=== PATIENT | female | born 1945 | race Caucasian/White ===

== ENCOUNTER → 2024-08-24 | Outpatient (CLI) | payer MEDICARE, SELFPAY ==
[2024-08-24 12:06] LABS: Vitamin D 25 Hydroxy Total 29.6 ng/mL (7.3-40.2)
[2024-08-24 14:16] LABS: Creatinine MALB Rnd Ur 107 mg/dL (30-125); Microalbumin Creat Ratio 27 mg/gCrea (<30); Microalbumin, Random Urine 29 mg/L (0-300)
== END | disposition home or self-care (01) ==
LOC: COPL 10:45
PROVIDERS: PCP Internal Medicine; Referring Provider Internal Medicine Endocrinology, Diabetes & Metabolism; Visit Provider Internal Medicine Endocrinology, Diabetes & Metabolism
DX: E55.9 Vitamin D deficiency, unspecified (principal); E10.59 Type 1 diabetes mellitus with other circulatory complications
CPT/HCPCS: 36415; 82043; 82306; 82570; 84443

== ENCOUNTER → 2024-09-21 | Outpatient (CLI) | payer MEDICARE, SELFPAY ==
[2024-09-21 11:08] LABS: Collection Type, Urine Clean Catch
[2024-09-21 11:31] LABS: Basophils % (Auto) 1 % (0-2.5); Eosinophils # (Auto) 0.1 Thou/mm3 (0.0-0.5); Eosinophils % (Auto) 3 % (0-10); Hematocrit 30.6 % (36.0-46.0); Hemoglobin 10.6 g/dL (12.0-16.0); Immature Granulocytes % (Auto) 0 % (0-0); Immature Granulocytes Auto 0.01 Thou/mm3 (0.00-0.00); Lymphocytes # (Auto) 0.7 Thou/mm3 (1.0-4.8); Lymphocytes % (Auto) 25 % (10-50); Mean Corpuscular HGB Conc 34.6 g/dl (31.0-37.0); Mean Corpuscular Hemoglobin 32.5 pg (25.0-35.0); Mean Corpuscular Volume 94 fL (80-100); Monocytes # (Auto) 0.5 Thou/mm3 (0.0-0.8); Monocytes % (Auto) 17 % (0-12); Neutrophils # (Auto) 1.5 Thou/mm3 (1.8-7.7); Neutrophils % (Auto) 53 % (37-80); Nucleated Red Blood Cell % 0 /100 WBC (0); Platelet Count 208 Thou/mm3 (140-440); RDW Standard Deviation 46.1 fL (36.4-46.3); Red Blood Count 3.26 Miln/mm3 (4.00-5.20)
[2024-09-21 11:40] LABS: White Blood Count 2.8 Thou/mm3 (3.6-11.0)
[2024-09-21 11:56] LABS: Creatinine MALB Rnd Ur 86 mg/dL (30-125); Microalbumin Creat Ratio 27 mg/gCrea (<30); Microalbumin, Random Urine 23 mg/L (0-300)
[2024-09-21 12:11] LABS: Bacteria,Urine Rare; Bilirubin,Urine Negative (Negative); Blood,Urine Negative (Negative); Clarity,Urine Turbid (Clear/Hazy); Color,Urine Yellow (Lt Yel-Yel); Glucose, Urine Negative (Negative); Ketones,Urine Negative (Negative); Leukocyte Esterase,Urine Positive (Negative); Nitrite,Urine Negative (Negative); Protein,Urine Negative (Neg - Trace); RBC,Urine 2 /hpf (0-3); Specific Gravity,Urine 1.013 (1.001-1.035); Squamous Epithelial Cell,Urine 1 /hpf (0-5); Urobilinogen,Urine Negative mg/dL (0.0-1.0); WBC,Urine 23 /hpf (0-5)
[2024-09-21 12:19] LABS: Glucose Estimated Average 151 mg/dL (80-131); Hemoglobin A1C 6.9 % Hgb (4.8-6.0)
[2024-09-21 12:28] LABS: Alanine Aminotransferase 19 U/L (10-49); Albumin, Serum 3.7 gm/dL (3.4-4.8); Albumin/Globulin Ratio 1.9 (1.2-2.2); Alkaline Phosphatase 84 U/L (46-116); Anion Gap 8 (7-16); Aspartate Amino Transferase 26 U/L (0-34); BUN/Creatinine Ratio 20 Ratio (12-20); Bilirubin,Total 0.7 mg/dL (0.3-1.2); Blood Urea Nitrogen 18 mg/dL (9-23); Calcium 9.7 mg/dL (8.3-10.6); Calcium (Corrected) 9.9 mg/dL (8.5-10.1); Carbon Dioxide 29.9 mMol/L (20.0-31.0); Cardiac Risk Estimate 1.7 RATIO (3.7-5.6); Chloride 108 mMol/L (98-107); Cholesterol 104 mg/dL (132-200); Creatinine (Component) 0.9 mg/dL (0.6-1.3); Glucose 107 mg/dL (74-106); HDL Cholesterol 62 mg/dL (40-60); LDL Cholesterol,Calculated 33 mg/dL (0-130); Osmolality,Calculated 292 (275-295); Potassium 4.2 mMol/L (3.4-5.1); Sodium 146 mMol/L (136-145); Thyroid Stimulating Hormone 0.96 uIU/mL (0.55-4.78); Total Protein 5.7 gm/dL (5.7-8.2); Triglycerides 45 mg/dL (30-150); eGFR > 60 See Note
== END | disposition home or self-care (01) ==
PROVIDERS: PCP Internal Medicine; Referring Provider Internal Medicine; Visit Provider Internal Medicine
DX: E11.9 Type 2 diabetes mellitus without complications (principal); I10 Essential (primary) hypertension; E78.5 Hyperlipidemia, unspecified
CPT/HCPCS: 36415; 80053; 80061; 81001; 82043; 82570; 83036; 84439; 84443; 85025

== ENCOUNTER 2024-10-28 06:21 | Inpatient (IN) | payer MEDICARE, SELFPAY ==
[2024-10-28] VITALS (11 sets, daily range): BP systolic 100–144; BP diastolic 48–67; PULSE 82–103; RESP 16–88; TEMP 36.5–39.8; O2SAT 79–99; BMI 20.2
--- NOTE | 2024-10-28 06:38 | EKG_ITS ---
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
--- NOTE | 2024-10-28 06:38 | XR_ITS ---
Examination: AP chest single view A single AP portable semiupright chest single view Exam date and time: 22/03/2025 0648 hours Comparison March 10, 2018 INDICATION: Chest pain today. FINDINGS: Significant pneumonia in the lingular segment left upper lobe Normal heart size Right lung clear Left subclavian Port-A-Cath tip SVC IMPRESSION: Significant pneumonia in the lingular segment left upper lobe
[2024-10-28 06:54] LABS: Collection Type, Urine Clean Catch; Squamous Epithelial Cell,Urine 0 /hpf (0-5)
[2024-10-28 07:10] LABS: Basophils % (Auto) 0 % (0-2.5); Eosinophils % (Auto) 0 % (0-10); Hemoglobin 10.7 g/dL (12.0-16.0); Immature Granulocytes % (Auto) 0 % (0-0); Immature Granulocytes Auto 0.01 Thou/mm3 (0.00-0.00); Lactate (Lactic Acid) 1.4 mMol/L (0.4-2.0); Lymphocytes # (Auto) 0.3 Thou/mm3 (1.0-4.8); Lymphocytes % (Auto) 6 % (10-50); Mean Corpuscular HGB Conc 35.7 g/dl (31.0-37.0); Mean Corpuscular Volume 93 fL (80-100); Monocytes # (Auto) 0.1 Thou/mm3 (0.0-0.8); Monocytes % (Auto) 2 % (0-12); Neutrophils # (Auto) 4.5 Thou/mm3 (1.8-7.7); Neutrophils % (Auto) 91 % (37-80); Nucleated Red Blood Cell % 0 /100 WBC (0); Platelet Count 164 Thou/mm3 (140-440); RDW Standard Deviation 46.9 fL (36.4-46.3); Red Blood Count 3.24 Miln/mm3 (4.00-5.20); White Blood Count 4.9 Thou/mm3 (3.6-11.0)
[2024-10-28 07:30] LABS: B-Type Natriuretic Peptide 120 pg/mL (0-100)
[2024-10-28 07:38] LABS: Alanine Aminotransferase 18 U/L (10-49); Albumin/Globulin Ratio 1.7 (1.2-2.2); Alkaline Phosphatase 79 U/L (46-116); Anion Gap 10 (7-16); Aspartate Amino Transferase 28 U/L (0-34); BUN/Creatinine Ratio 19 Ratio (12-20); Bilirubin,Total 1.1 mg/dL (0.3-1.2); Blood Urea Nitrogen 17 mg/dL (9-23); Calcium 8.4 mg/dL (8.3-10.6); Calcium (Corrected) 9.2 mg/dL (8.5-10.1); Carbon Dioxide 24.8 mMol/L (20.0-31.0); Chloride 108 mMol/L (98-107); Creatinine (Component) 0.9 mg/dL (0.6-1.3); Estimated Creatinine Clearance 42.1 mL/min (>60); Globulin 1.8 gm/dL (2.3-3.5); Glucose 85 mg/dL (74-106); Lipase 15 U/L (12-53); Magnesium 1.5 mg/dL (1.6-2.6); Osmolality,Calculated 285 (275-295); Potassium 3.3 mMol/L (3.4-5.1); Procalcitonin 0.76 ng/ml (0.0-0.49); Sodium 143 mMol/L (136-145); Total Protein 4.8 gm/dL (5.7-8.2); Troponin I < 0.020 ng/mL (0.0-0.045); eGFR > 60 See Note
[2024-10-28 07:42] LABS: INR 1.1 (0.9-1.3); Partial Thromboplastin Time 20.8 Seconds (22.0-36.0); Prothrombin Time 12.4 Seconds (9.0-12.2)
[2024-10-28] MEDS: ACETAMINOPHEN 325 MG TABLET 650 MG PO (07:45)
[2024-10-28] MEDS: SODIUM CHLORIDE 0.9% 1000 ML 1,000 ML 999 ML IV (07:53)
--- NOTE | 2024-10-28 07:54 | PD.EDWEAK ---
ED Weakness RME/HPI General Chief complaint: Shortness of Breath/Dyspnea Stated complaint: SOB Time Seen by Provider: 10/28/24 06:38 Arrival date/time: 10/28/24 06:21 RME / HPI RME / HPI Narrative: 79 year old female with history of seizures, hypertension, diabetes, h/o gastric adenocarcinoma with resection, presents to the ED BIBA from home for complaint of weakness, fevers, body aches, cough, and feeling dizzy today. Patient additionally reports a mild cough. No other associated symptoms reported. Denies chest pain, abdominal pain, nausea, vomiting, diarrhea, or urinary symptoms. Per RN, patient is febrile at 103.6F and hypoxic 79% on room air. Related Data Home Medications ?Medication ?Instructions ?Recorded ?Confirmed atorvastatin 10 mg tablet (Lipitor) 5 mg PO DAILY ##0 04/03/13 05/12/22 clopidogrel 75 mg tablet (Plavix) 75 mg PO DAILY ##0 04/03/13 05/12/22 amlodipine 5 mg tablet 5 mg PO QDAY 05/12/22 05/12/22 amlodipine 5 mg tablet 5 mg PO QDAY 05/12/22 05/12/22 losartan 100 mg tablet 100 mg PO QDAY 05/12/22 05/12/22 Previous Rx's ?Medication ?Instructions ?Recorded insulin glargine 100 unit/mL 18 unit (0.18 mL) subcut QPM #10 mL 06/29/22 subcutaneous solution (Lantus U-100 Insulin) cephalexin 500 mg capsule 500 mg PO TID #21 caps 11/01/23 levetiracetam 500 mg tablet 1,000 mg (2 x 500 mg) PO BID #30 11/01/23 (Keppra) tabs Allergies Allergy/AdvReac Type Severity Reaction Status Date / Time No Known Allergies Allergy Verified 07/03/23 10:34 Review of Systems Review of Systems Narrative Review of Systems: GEN: +fever, no weight loss, +global weakness, +body aches EYES: No discharge, no pain HEENT: No ear pain, no congestion, no sore throat PULM: No shortness of breath, +cough CV: No chest pain, no palpitations GI: No nausea, no vomiting, no diarrhea, no pain, no constipation : No frequency, no urgency, no dysuria MUSC/SKEL: No joint pain, no back pain SKIN: No rash NEURO: +dizziness, +global weakness, no headache Past Medical History Past Medical History NEUROLOGIC: Positive Neurological Disorders, Cerebrovascular Accident and Head Trauma CARDIAC: Positive Cardiac Disorders, Hypercholesterolemia, Congestive Heart Failure and Hypertension RESPIRATORY: Positive Asthma GASTROINTESTINAL: Positive Gastrointestinal Disorders REPRODUCTIVE: Positive Endometriosis and Previous Pregnancies MUSCULOSKELETAL: Positive Musculoskeletal Disorders, Arthritis, Osteoporosis and Fractures ENT: Positive Cataracts, Glaucoma, Macular Degeneration and Head Trauma ENDOCRINE: Positive Endocrine Disorders and Diabetes Mellitus Type 1 OTHER HISTORY: Positive Hospitalization, Autoimmune Disease, Shingles, Chicken Pox, Measles, Mumps and Cancer Family History FAMILY HISTORY: Positive Family Cardiac Disorders, Family Cancer and Family Surgery Surgical History SURGICAL: Positive Eye Surgery, Abdominal Surgery, Gastrostomy, Hysterectomy and Tubal Ligation Social History SMOKING STATUS: Never smoker SUBSTANCE USE: does not use ED Exam Narrative Physical exam: GENERAL APPEARANCE: alert and oriented x 4, well-developed, well-nourished, patient coughing during exam HEENT: Normocephalic, atraumatic; pupils equal, round, reactive to light; EOMI; mucous membranes pink, moist; oropharynx clear NECK: Supple LUNGS: upper airway noise; no wheezes, no rales, no rhonchi HEART: Regular rate, regular rhythm; normal S1, S2; no murmurs ABDOMEN: non distended; normal BS; soft, no tenderness, no guarding, no rebound; no masses, no organomegaly, no hernia BACK: no CVA tenderness EXTREMITIES: atraumatic; no edema NEUROLOGIC: awake; alert and oriented x4; cranial nerves II-XII grossly intact; no focal sensory or motor deficits PSYCHIATRIC: appropriate mood and affect SKIN: warm, dry, normal color; no rashes Course Quality Measures Current suspected stage: sepsis Possible source: pulmonary Blood cultures ordered: completed in ED Antibiotic ordered: Yes Pertinent labs: 10/28/24 06:59 Lactic Acid 1.4 mMol/L (0.4-2.0) Procalcitonin 0.76 H ng/ml (0.0-0.49) sepsis Orders Category Date Time Status Bedside COVID-19 Antigen Test NOW Care 10/28/24 06:43 Active Bedside Influenza A&B Antigen Test NOW Care 10/28/24 06:43 Completed Ticket Sales Supervisor NOW Care 10/28/24 06:38 Active EKG (ED ONLY) *Do not use* NOW Care 10/28/24 06:38 Completed Insert IV NOW Care 10/28/24 07:51 Active EKG (ED Only) Stat Exams 10/28/24 06:38 Draft XR chest 1V portable Stat Exams 10/28/24 06:38 Completed B-Type Natriuretic Peptide Stat Lab 10/28/24 06:59 Completed Blood Culture (Lab) Stat Lab 10/28/24 06:59 Received CBC Stat Lab 10/28/24 06:59 Completed Comprehensive Metabolic Panel Stat Lab 10/28/24 06:59 Completed Lactate (Lactic Acid) Stat Lab 10/28/24 06:59 Completed Lipase Stat Lab 10/28/24 06:59 Completed Magnesium Stat Lab 10/28/24 06:59 Completed Partial Thromboplastin Time Stat Lab 10/28/24 06:59 Completed Procalcitonin Stat Lab 10/28/24 06:59 Completed Prothrombin Time with INR Stat Lab 10/28/24 06:59 Completed Troponin I Stat Lab 10/28/24 06:59 Completed Urinalysis Stat Lab 10/28/24 06:49 Completed Urine Culture Stat Lab 10/28/24 06:49 Received VBG [Venous Blood Gas] Stat Lab 10/28/24 08:16 Ordered Acetaminophen Tab [Tylenol Tab] Med 10/28/24 07:10 Discontinued 650 mg PO X1 ONE Azithromycin Inj [Zithromax Inj] 500 mg Med 10/28/24 07:27 Discontinued Sodium Chloride 0.9% 250 ml [Ns] 250 ml IV X1 Magnesium Sulfate 2 GM Ivpb [Magnesium Sulfate Ivpb] Med 10/28/24 07:41 Active 2 gm in 50 ml IV X1 POTASSIUM CHL 10 mEq IVPB [Kcl Ivpb] Med 10/28/24 07:41 Active 10 meq in 100 ml IV Q1H Sodium Chloride 0.9% 1000 ml [Ns] 1,000 ml Med 10/28/24 07:10 Discontinued IV 999 mls/hr cefTRIAXone [Rocephin] 1,000 mg Med 10/28/24 07:27 Discontinued SODIUM CHLORIDE 0.9% (Popper) [Ns 0.9% (P)] 50 ml IV X1 Vital Signs Vital signs: Vital Signs Temperature 103.6 F H 10/28/24 06:41 Pulse Rate 103 H 10/28/24 06:41 Respiratory Rate 25 H 10/28/24 06:41 Blood Pressure 144/54 H 10/28/24 06:41 Pulse Oximetry (%) 79 L 10/28/24 06:41 Oxygen Delivery Method Room Air 10/28/24 06:41 Pulse ox is 79% on room air which is hypoxic. Pulse ox is 97% on 2L nasal cannula which is normal. Weakness MDM Narrative MDM Narrative:: Samantha Myrick am scribing for and in the presence of Dr. Spencer. Patient data External records reviewed:: [facility] previous records (I reviewed ED visit on 11/01/2023 ) and EMS form Clinical information provided by:: patient and EMS Social determinants that could affect healthcare access:: none Patient has the following chronic illnesses:: seizures, hypertension, diabetes, h/o gastric adenocarcinoma with resection How is presenting disease/condition affected by chronic disease/condition?: exacerbated by Evaluation data The following diagnostics were reviewed and interpreted by me:: lab results, radiology exam(s) (CXR interpreted by me shows left lower lobe infiltrate ) and EKG tracing(s) (sinus tachycardia with first degree AV block, rate 100, no acute ischemic changes, no STEMI. ) Lab and/or radiology exams considered but not ordered:: None Interpretation Summary: Ordering Physician: Brianda Spencer MD Date of Service: 10/28/24 Procedure(s): XR chest 1V portable Accession Number(s): [id number] cc: William Morejon MD; Brianda Spencer MD~ Examination: AP chest single view A single AP portable semiupright chest single view Exam date and time: 22/03/2025 0648 hours Comparison March 10, 2018 INDICATION: Chest pain today. FINDINGS: Significant pneumonia in the lingular segment left upper lobe Normal heart size Right lung clear Left subclavian Port-A-Cath tip SVC IMPRESSION: Significant pneumonia in the lingular segment left upper lobe Dictated By: William Morejon MD Signed By: <Electronically signed by William Morejon MD in OV> 10/28/24 0748 Medications / Prescriptions Medications or Prescriptions considered but not ordered:: None Medication administrations:: Medication Administration History Magnesium Sulfate (Magnesium Sulfate Ivpb) 2 gm in 50 mls @ 25 mls/hr IV X1 ONE Stop: 10/28/24 09:40 Last Admin: 10/28/24 08:11 Dose: 25 mls/hr Documented By: GARRISON Potassium Chloride (Kcl Ivpb) 10 meq in 100 mls @ 100 mls/hr IV Q1H ENRIQUE Stop: 10/28/24 11:40 Last Admin: 10/28/24 08:13 Dose: 100 mls/hr Documented By: GARRISON Discontinued Medications Acetaminophen (Acetaminophen 325 Mg Tablet) 650 mg PO X1 ONE Stop: 10/28/24 07:11 Last Admin: 10/28/24 07:45 Dose: 650 mg Documented By: GARRISON Sodium Chloride (Ns) 1,000 mls @ 999 mls/hr IV .Q1H1M ONE Stop: 10/28/24 08:10 Last Admin: 10/28/24 07:53 Dose: 999 mls/hr Documented By: GARRISON Azithromycin 500 mg/ Sodium (Chloride) 250 mls @ 250 mls/hr IV X1 ONE Stop: 10/28/24 08:26 Ceftriaxone Sodium 1,000 mg/ (Sodium Chloride) 50 mls @ 100 mls/hr IV X1 ONE Stop: 10/28/24 07:56 Last Admin: 10/28/24 08:23 Dose: 100 mls/hr Documented By: GARRISON See above Consultations Consultation(s) initiated? (list below): Yes Consultation #1 (Physician, Specialty, Details): I spoke with hospitalist Dr. Wasserman regarding admission. Discussed patients PMHx, HPI, ED course, exam findings, labs, and radiology results. Will come evaluate the patient in the ED. Time: 08:05 Diagnosis Weakness Differential Diagnosis: acute myocardial infarction, anemia, hypoglycemia, hypothyroidism, sepsis and dehydration Most likely diagnosis given after review of the tests above:: Pneumonia Hypoxia Admission Indicated Admission indicated?: indicated Admission Request Was there a request for admission?: Yes Admission Attestation Admission request attestation: Discussed case with [] from Hospitalist service regarding admission. Discussed patients ED course, exam findings, labs, and radiology results. The Hospitalist [agrees,declines] to accept the patient for admission. Disposition Plan Disposition Plan: Admit Critical Care Time Critical Care Time Critical Care Time: Yes Total Critical Care Time (min.): 30 Attestation: The high probability of sudden, clinically significant deterioration in the patient's condition required the highest level of my preparedness to intervene urgently. The services I provided to this patient were to treat and/or prevent clinically significant deterioration. Services included the following: chart data review, reviewing nursing notes and/or old charts, documentation time, regulatory consultant collaboration regarding findings and treatment options, medication orders and management, direct patient care, vital sign assessments and ordering, interpreting and reviewing diagnostic studies and lab tests. Aggregate critical care time includes only time during which I was engaged in work directly related to the patient's care, as described above, whether at bedside or elsewhere in the Emergency Department. It did not include time spent performing other reported procedures or the services of residents, students, nurses or physician assistants. Discharge Plan Plan Patient Disposition: Admit Acute Care w/in Hospital Prescriptions/Referrals Prescriptions/Med Rec: No Action atorvastatin [Lipitor] 10 MG tablet 5 mg PO DAILY Qty: 0 clopidogrel [Plavix] 75 MG tablet 75 mg PO DAILY Qty: 0 amlodipine 5 mg tablet 5 mg PO QDAY Patient Comments: GENERIC FOR NORVASC. TAKE 1 TABLET BY MOUTH ONCE DAILY losartan 100 mg tablet 100 mg PO QDAY Patient Comments: TAKE 1 TABLET BY MOUTH EVERY DAY amlodipine 5 mg tablet 5 mg PO QDAY Patient Comments: GENERIC FOR NORVASC. TAKE 1 TABLET BY MOUTH ONCE DAILY insulin glargine [Lantus U-100 Insulin] 100 unit/mL solution 18 unit subcut QPM Qty: 10 1RF Rx Instructions: 18 U at bedtime in case of insulin pump failure levetiracetam [Keppra] 500 mg tablet 1,000 mg PO BID Qty: 30 1RF cephalexin 500 mg capsule 500 mg PO TID Qty: 21 0RF Problem List Clinical Impression: Pneumonia, Hypoxia Patient/Caregiver Discharge Instructions Print Language: Armenian Stand Alone Forms: Vicky Award Info., Patient Portal Info Letter
[2024-10-28] MEDS: Magnesium Sulfate 2 GM Ivpb 2 GM/50 ML BAG IV ×2 (08:11→10:04)
[2024-10-28] MEDS: POTASSIUM CHL 10 mEq IVPB 10 MEQ/100 ML BAG 100 MEQ IV ×4 (08:13→12:45)
[2024-10-28 08:15] LABS: Bacteria,Urine Rare; Bilirubin,Urine Negative (Negative); Blood,Urine Negative (Negative); Clarity,Urine Clear (Clear/Hazy); Color,Urine Lt-Yellow (Lt Yel-Yel); Glucose, Urine Negative (Negative); Ketones,Urine Negative (Negative); Leukocyte Esterase,Urine Negative (Negative); Nitrite,Urine Negative (Negative); PH,Urine 5.5 (5.0-7.0); Protein,Urine Negative (Neg - Trace); RBC,Urine < 1 /hpf (0-3); Specific Gravity,Urine 1.012 (1.001-1.035); Urobilinogen,Urine Negative mg/dL (0.0-1.0); WBC,Urine 4 /hpf (0-5)
[2024-10-28] MEDS: cefTRIAXone 1,000 MG in SODIUM CHLORIDE 0.9% (Popper) 50 ML 100 MG IV (08:23)
[2024-10-28 08:39] LABS: Base Excess, Venous 1 (-3-3); O2 Saturation, Venous 92 % (96-97); PCO2, Venous 35 mmHg (36-56); PO2, Venous 58 mmHg (15-58); pH, Venous 7.46 (7.33-7.66)
[2024-10-28] MEDS: AZITHROMYCIN INJ 500 MG in SODIUM CHLORIDE 0.9% 250 ML 250 ML 250 MG IV (09:03)
--- NOTE | 2024-10-28 09:44 | XR_ITS ---
Examination: CTA chest with intravenous contrast 2-D reconstructions 3-D reconstructions, vascular Date and time of exam: October 28, 2024 1034 hours INDICATIONS: Chest pain shortness of breath today CTDI: vol (mGy) 5.81 DLP: (mGycm) 184 Technique: Multiple axial sections of the thorax have been obtained. 3 mm slice thickness, from below the hemidiaphragms to above the apices of the lungs. Mediastinal and lung density settings have been obtained. 2-D sagittal and coronal reconstructions. 3-D angiographic renderings, 3-D volume renderings, 3D post processing, vascular maximum intensity projections obtained. Contrast administered is 100 cc Isovue-370. Low dose protocols were performed. One or more of the following dose reduction techniques were used; automated exposure control, adjustment of the mA and/or KV according to patient size, use of iterative reconstruction technique. Findings: No thoracic aortic aneurysm dilatation Fluid-filled esophagus No enlargement pulmonary artery segments No pulmonary artery filling defects Extensive pneumonia in the lingular segment mild pneumonia both lung bases Mild vascular congestion 6 mm pulmonary nodule left upper lobe IMPRESSION: Extensive pneumonia lingular segment left upper lobe Mild bibasilar pneumonia Negative for pulmonary artery emboli
--- NOTE | 2024-10-28 09:50 | PC.CC ---
Patient is a 79 year-old female who presents to the hospital for AHRF 2/2 Pneumonia. Gabbi TAPIA made [id number] contact with patient. ASW introduced self, role, and reason for visit. Patient appeared alert and oriented to self, location, and situation. Patient was pleasant and engaged in initial assessment. Patient confirmed information on demographics and reports to living with her Benja Lopez. Patient's medical decision maker is her Benja in the event she is unable to make her own medical decisions. At home the patient ambulates independently and completes her own ADLs. Patient does not use any DME. Patient receives primary care with [facility] and [facility] for prescription medications. Upon discharge the patient plans to return back home. environmental services director to follow up with any discharge needs.
[2024-10-28] MEDS: levETIRAcetam 250 MG TABLET 1000 MG PO ×2 (10:03→20:12)
[2024-10-28] MEDS: SODIUM CHLORIDE 0.9% 1000 ML 1,000 ML 80 ML IV (10:47)
[2024-10-28] MEDS: CLOPIDOGREL BISULFATE 75 MG TABLET PO (10:50)
--- NOTE | 2024-10-28 11:50 | PD.RESHP ---
Documentation for date of: 10/28/24 [facility] History of Present Illness History of present illness: Ms. Lopez is an 79-year-old female, very hard of hearing, with past medical history significant for type 1 diabetes (on insulin pump), arthritis, gastric cancer status post gastrectomy in 2018, hypertension, history of CVA without residual deficits and seizure disorder presented to the ED after having shortness of breath, fever and chills since this morning. Patient states that she has noticed a mild nonproductive cough for the past 3 days and last night she did some yard work including cleaning out the weeds and mowing the lawn which likely caused her to have severe bilateral shoulder pain. Patient denies any sick contacts or recent travels denies any chest pain palpitation or pressure, orthopnea or PND. Patient denies abdominal pain, constipation or diarrhea. Patient states that she has been having regular bowel movements and denies any dysuria or urgency. ED course: Vitals: Blood pressure 144/54, pulse 103, resp versus 25, temperature 103.6 answers of 79% patient is placed on 4 L oxygen via nasal cannula Labs: WBC 0.9, globin 10.7, hematocrit 30.0, potassium 3.3, 0.5, BNP 1 albumin 3.0, procalcitonin 0.76 VBG: pH 7.46, CO2 35, O2 58, O2 saturation 92% Urinalysis unremarkable Chest x-ray shows significant pneumonia in the lingular segment left upper lobe CTA shows extensive pneumonia lingular segment left upper lobe mild bibasilar pneumonia and negative for pulmonary artery emboli EKG sinus tachycardia with ST depressions PMH: Type 1 diabetes, arthritis, hypertension, CVA, history of gastric cancer s/p gastrectomy and 2018 PSH: Partial gastrectomy, knee surgery and meniscus surgery SH: Never smoked, denies marijuana and denies illicit drugs, drinks alcohol occasionally Home Meds: Keppra 1000 mg twice daily, amlodipine 5 mg daily, cyclobenzaprine 5 mg twice daily, hydralazine 25 mg 3 times daily and carvedilol 12.5 mg twice daily Review of Systems Review of Systems Systems Reviewed: All systems reviewed, normal except as documented Exam Vital Signs Temp Pulse Resp BP Pulse Ox O2 Del Method O2 Flow Rate 98.5 F 89 18 100/48 L 98 Nasal Cannula 2 10/28/24 10:54 10/28/24 10:54 10/28/24 10:54 10/28/24 10:54 10/28/24 10:54 10/28/24 10:54 10/28/24 10:54 Narrative Exam GENERAL: elderly pleasant female, very hard of hearing NEURO: no focal neurological deficits HEENT: Atraumatic, Normocephalic. mucous membranes moist. Eyes open, symmetrical, & clear, left side chest chemo port present HEART: Normal Heart Sounds LUNGS: Clear to auscultation with no wheezing or crackles. ABDOMEN: soft, non-distended, non-tender, bowel sounds heard, no guarding or rebound tenderness, insulin pump glucometer attached SKIN: No Rash or ecchymoses EXTREMITIES: No edema, tenderness, able to move all 4 extremities, pedal pulses palpated Results: Labs 10/29/24 04:49 10/29/24 04:49 Labs: Short CBC 10/28/24 Range/Units 06:59 WBC 4.9 (3.6-11.0) Thou/mm3 Hgb 10.7 L (12.0-16.0) g/dL Hct 30.0 L (36.0-46.0) % Plt Count 164 D (140-440) Thou/mm3 BMP 10/28/24 06:59 Sodium 143 Potassium 3.3 L Chloride 108 H Carbon Dioxide 24.8 BUN 17 Creatinine 0.9 Glucose 85 Calcium 8.4 Cardiac Enzymes 10/28/24 Range/Units 06:59 Troponin I < 0.020 (0.0-0.045) ng/mL Liver Function 10/28/24 Range/Units 06:59 Total Bilirubin 1.1 (0.3-1.2) mg/dL AST 28 (0-34) U/L ALT 18 (10-49) U/L Alkaline Phosphatase 79 (46-116) U/L Albumin 3.0 L (3.4-4.8) gm/dL Urine 10/28/24 Range/Units 06:49 Urine Color Lt-Yellow (Lt Yel-Yel) Urine Clarity Clear (Clear/Hazy) Urine pH 5.5 (5.0-7.0) Ur Specific Eastern 1.012 (1.001-1.035) Urine Protein Negative (Neg - Trace) Urine Glucose (UA) Negative (Negative) ABG Interpretation ABG results: 10/28/24 08:30 VBG pH 7.46 VBG pCO2 35 L VBG pO2 58 VBG Base Excess 1 Quality Measures Quality Measures sepsis Current suspected stage: sepsis (concern, not yet ruled out ) Possible source: pulmonary Blood cultures ordered: completed in ED Antibiotic ordered: Yes Advance care planning discussed with:: patient Medications Home Medications and Allergies Home Medications ?Medication ?Instructions ?Recorded ?Confirmed ?Type atorvastatin 10 mg tablet (Lipitor) 5 mg PO DAILY ##0 04/03/13 10/28/24 History clopidogrel 75 mg tablet (Plavix) 75 mg PO DAILY ##0 04/03/13 10/28/24 History amlodipine 5 mg tablet 5 mg PO QDAY 05/12/22 10/28/24 History losartan 100 mg tablet 100 mg PO QDAY 05/12/22 10/28/24 History carvedilol 12.5 mg tablet 12.5 mg PO BID 10/28/24 10/28/24 History cyclobenzaprine 5 mg tablet 5 mg PO BID 10/28/24 10/28/24 History hydralazine 25 mg tablet 25 mg PO QID 10/28/24 10/28/24 History Allergies Allergy/AdvReac Type Severity Reaction Status Date / Time No Known Allergies Allergy Verified 07/03/23 10:34 Visit Medications Acetaminophen (Acetaminophen 325 Mg Tablet) 650 mg PO Q6H PRN PRN Reason: Fever >100.3 Stop: 11/27/24 08:57 Clopidogrel Bisulfate (Clopidogrel Bisulfate 75 Mg Tablet) 75 mg PO QDAY [facility] Stop: 11/27/24 10:29 Last Admin: 10/28/24 10:50 Dose: 75 mg Dextrose (Dextrose 50%-Water Inj 50 Ml Syringe) 25 ml IV Q15MIN PRN PRN Reason: BG 50-70 responsive npo pt Stop: 11/27/24 09:03 Dextrose (Dextrose 50%-Water Inj 50 Ml Syringe) 50 ml IV Q15MIN PRN PRN Reason: BG <50 OR BG <70 & pt unresponsive Stop: 11/27/24 09:03 Enoxaparin Sodium (Enoxaparin Sod Inj 40 Mg/0.4 Ml Syringe) 40 mg SC QDAY [facility] Stop: 11/11/24 08:59 Last Admin: 10/28/24 09:10 Dose: Not Given Glucagon (Glucagon Inj 1 Mg Vial) 1 mg IM Q15MIN PRN PRN Reason: BG <70, and no IV access Azithromycin 250 mg/ Sodium (Chloride) 250 mls @ 250 mls/hr IV QDAY [facility] Stop: 11/05/24 09:04 Ceftriaxone Sodium/Dextrose (Rocephin/D5w 1gm Iv Premix) 1 gm in 50 mls @ 100 mls/hr IV QDAY [facility] Stop: 11/05/24 08:59 Sodium Chloride (Ns) 1,000 mls @ 80 mls/hr IV .[id number] ONE Stop: 10/28/24 22:53 Last Admin: 10/28/24 10:47 Dose: 80 mls/hr Insulin Human Lispro (Insulin Lispro (Admelog) 1 Unit/0.01 Ml Unit) 0 unit SC AC ENRIQUE; Protocol Stop: 11/27/24 11:29 Levetiracetam (Levetiracetam 250 Mg Tablet) 1,000 mg PO BID ENRIQUE Stop: 11/27/24 09:59 Last Admin: 10/28/24 10:03 Dose: 1,000 mg Discontinued Medications Acetaminophen (Acetaminophen 325 Mg Tablet) 650 mg PO X1 ONE Stop: 10/28/24 07:11 Last Admin: 10/28/24 07:45 Dose: 650 mg Sodium Chloride (Ns) 1,000 mls @ 999 mls/hr IV .[id number] ONE Stop: 10/28/24 08:10 Last Infusion: 10/28/24 08:53 Dose: Infused Azithromycin 500 mg/ Sodium (Chloride) 250 mls @ 250 mls/hr IV X1 ONE Stop: 10/28/24 08:26 Last Infusion: 10/28/24 10:06 Dose: Infused Ceftriaxone Sodium 1,000 mg/ (Sodium Chloride) 50 mls @ 100 mls/hr IV X1 ONE Stop: 10/28/24 07:56 Last Infusion: 10/28/24 09:02 Dose: Infused Magnesium Sulfate (Magnesium Sulfate Ivpb) 2 gm in 50 mls @ 25 mls/hr IV X1 ONE Stop: 10/28/24 09:40 Last Infusion: 10/28/24 10:35 Dose: Infused Potassium Chloride (Kcl Ivpb) 10 meq in 100 mls @ 100 mls/hr IV Q1H ENRIQUE Stop: 10/28/24 11:40 Last Admin: 10/28/24 10:47 Dose: 100 mls/hr Magnesium Sulfate (Magnesium Sulfate Ivpb) 2 gm in 50 mls @ 25 mls/hr IV X1 ONE Stop: 10/28/24 11:45 Last Admin: 10/28/24 10:04 Dose: 25 mls/hr Assessment & Plan Plan Ms. Lopez is an 79-year-old female, very hard of hearing, with past medical history significant for type 1 diabetes (on insulin pump), arthritis, gastric cancer status post gastrectomy in 2017, hypertension, history of CVA without residual deficits and seizure disorder presented to the ED after having shortness of breath, fever and chills since this morning. # Possible sepsis #Acute Hypoxic respiratory Failure 09/04 #Community acquired pneumonia #Concern for PE - ruled out -Patient states that she has noticed a mild nonproductive cough for the past 3 days -Although sepsis alert is called in the ED due to SIRS 10/04: tachycardia, tachyapnea and fever of 103.6, there is no evidence of end organ damage, Pt is saturating 98% on 2L O2, BC are pending -Due to pts gastric cancer history and hx of CVA, WELLS criteria for PE is calculated to be 1.5 Low risk group: 1.3% chance of PE in an ED population -Chest x-ray shows significant pneumonia in the lingular segment left upper lobe -CTA shows extensive pneumonia lingular segment left upper lobe mild bibasilar pneumonia and negative for pulmonary artery emboli -EKG sinus tachycardia with ST depressions -Procal 0.76 Plan: -Supplemental oxygen as needed -DuoNebs as needed -Urine and blood cultures pending -Azithromycin and ceftriaxone started 10/28- #Hypokalemia #Hypomagnesemia -On admission potassium is 3.3 and magnesium is 1.5 -40 mEq of potassium and 4 g of magnesium is repleted #Type 1 diabetes -Patient is on insulin pump which she turned off this morning -Started patient on insulin sliding scale with hypoglycemia protocol in place #Primary hypertension -Patient's home medications include hydralazine 25 mg 3 times daily, carvedilol 12.5 mg twice daily and amlodipine 5 mg daily -Blood pressure is within normal limits, will hold antihypertensive therapy for now #History of seizure disorder -Patient is diagnosed with seizure disorder in 2021 -Resumed home Keppra 1000 mg twice daily #History of gastric cancer status post-gastrectomy 2018 #History of CVA without residual deficits #History of arthritis -Started the patient on Plavix 75 mg daily -Resumed home cyclobenzaprine 5 mg at BID PRN Health Maintenance Disposition: Telemetry for AHRF 2/2 pneumonia requiring oxygen and IV antibitoics DVT Prophylaxis: enoxaparin 40mg Qdaily GI Prophylaxis: not needed Diet: carbohydrate consistent low Lines: Peripheral lines Code status: Full Assessment and plan discussed with my senior resident & attending physician Dr. Dr. Luque (PGY-1)- Internal medicine resident Attending Provider Attestation/Addendum I reviewed labs, imaging, EKG, home medications and prior available records. Face to face evaluation was performed by me. I have personally examined the patient and discussed assessment and plan with the IM team. I reviewed the resident note and agree with the plan with exceptions as below. Acute hypoxic respiratory failure Generalized weakness Acute febrile illness Sepsis secondary to pneumonia, left upper lobe Hypokalemia Insulin-dependent diabetes mellitus, on insulin pump History of gastric cancer Started ceftriaxone/azithromycin CTA showed no PE but significant left-sided pneumonia Follow-up cultures IV fluids Replete potassium as needed and monitor BMP Insulin pump was turned off. Started sliding scale insulin. Monitor fingersticks Outpatient follow-up with oncology
[2024-10-28 12:01] LABS: Cocci Serology, IgM Negative (Negative)
[2024-10-28] MEDS: INSULIN LISPRO (AdmeLOG) 1 UNIT/0.01 ML UNIT SC ×2 (13:23→17:41)
[2024-10-28 19:04] LABS: Albumin, Serum 2.9 gm/dL (3.4-4.8); Anion Gap 9 (7-16); BUN/Creatinine Ratio 20 Ratio (12-20); Blood Urea Nitrogen 20 mg/dL (9-23); Calcium 8.5 mg/dL (8.3-10.6); Calcium (Corrected) 9.4 mg/dL (8.5-10.1); Carbon Dioxide 22.8 mMol/L (20.0-31.0); Chloride 109 mMol/L (98-107); Estimated Creatinine Clearance 38.7 mL/min (>60); Glucose 207 mg/dL (74-106); Osmolality,Calculated 289 (275-295); Phosphorous 3.7 mg/dL (2.4-5.1); Potassium 4.7 mMol/L (3.4-5.1); Sodium 141 mMol/L (136-145); eGFR 57 See Note
[2024-10-29] VITALS (8 sets, daily range): BP systolic 106–120; BP diastolic 45–61; PULSE 80–90; RESP 10–16; TEMP 36.4–37; O2SAT 94–98; BMI 20.5
[2024-10-29 05:51] LABS: Basophils # (Auto) 0.1 Thou/mm3 (0.0-0.2); Basophils % (Auto) 0 % (0-2.5); Eosinophils % (Auto) 0 % (0-10); Hematocrit 29.9 % (36.0-46.0); Hemoglobin 10.1 g/dL (12.0-16.0); Immature Granulocytes % (Auto) 3 % (0-0); Immature Granulocytes Auto 0.92 Thou/mm3 (0.00-0.00); Lymphocytes # (Auto) 1.3 Thou/mm3 (1.0-4.8); Lymphocytes % (Auto) 4 % (10-50); Mean Corpuscular HGB Conc 33.8 g/dl (31.0-37.0); Mean Corpuscular Hemoglobin 33.2 pg (25.0-35.0); Mean Corpuscular Volume 98 fL (80-100); Monocytes # (Auto) 2.1 Thou/mm3 (0.0-0.8); Monocytes % (Auto) 7 % (0-12); Neutrophils # (Auto) 25.4 Thou/mm3 (1.8-7.7); Neutrophils % (Auto) 85 % (37-80); Nucleated Red Blood Cell % 0 /100 WBC (0); Platelet Count 202 Thou/mm3 (140-440); RDW Standard Deviation 51.5 fL (36.4-46.3); Red Blood Count 3.04 Miln/mm3 (4.00-5.20); White Blood Count 29.9 Thou/mm3 (3.6-11.0)
[2024-10-29 06:15] LABS: Alanine Aminotransferase 14 U/L (10-49); Albumin, Serum 2.8 gm/dL (3.4-4.8); Albumin/Globulin Ratio 1.6 (1.2-2.2); Alkaline Phosphatase 78 U/L (46-116); Anion Gap 12 (7-16); Aspartate Amino Transferase 22 U/L (0-34); BUN/Creatinine Ratio 21 Ratio (12-20); Bilirubin,Total 0.7 mg/dL (0.3-1.2); Blood Urea Nitrogen 25 mg/dL (9-23); Carbon Dioxide 18.5 mMol/L (20.0-31.0); Chloride 108 mMol/L (98-107); Creatinine (Component) 1.2 mg/dL (0.6-1.3); Estimated Creatinine Clearance 32.1 mL/min (>60); Globulin 1.8 gm/dL (2.3-3.5); Glucose 322 mg/dL (74-106); Magnesium 2.5 mg/dL (1.6-2.6); Osmolality,Calculated 292 (275-295); Phosphorous 4.1 mg/dL (2.4-5.1); Potassium 4.6 mMol/L (3.4-5.1); Sodium 138 mMol/L (136-145); Total Protein 4.6 gm/dL (5.7-8.2); eGFR 46 See Note
[2024-10-29] MEDS: INSULIN LISPRO (AdmeLOG) 1 UNIT/0.01 ML UNIT SC ×3 (07:35→16:23)
[2024-10-29] MEDS: cefTRIAXone/D5w 1gm IV premix 1 GM/50 ML BAG IV (09:08)
[2024-10-29] MEDS: ENOXAPARIN SOD INJ 40 MG/0.4 ML SYRINGE SC (09:09)
[2024-10-29] MEDS: levETIRAcetam 250 MG TABLET 1000 MG PO ×2 (09:09→20:20)
[2024-10-29] MEDS: INSULIN GLARGINE (Lantus) 5 UNIT/0.05 ML (PER 5 UNITS) 8 UNIT SC (09:09)
[2024-10-29] MEDS: CLOPIDOGREL BISULFATE 75 MG TABLET PO (09:09)
[2024-10-29] MEDS: AZITHROMYCIN INJ 250 MG in SODIUM CHLORIDE 0.9% 250 ML 250 ML IV ×2 (09:28→14:31)
[2024-10-29] MEDS: INSULIN LISPRO (AdmeLOG) 1 UNIT/0.01 ML UNIT 3 UNIT SC ×3 (11:06→20:17)
--- NOTE | 2024-10-29 12:15 | ESPR_ITS ---
Documentation for date of: 10/29/24 Subjective Subjective Interval history: No acute overnight events reported patient seen and examined at bedside this morning. Patient's vitals are stable, patient is saturating above 95% on room air. Patient denies any cough shortness of breath and has remained afebrile overnight. Patient denies any symptoms of UTI including dysuria or urgency patient also denies any diarrhea states that she had a bowel movement yesterday which was normal. Labs are significant for WBC 29.9 hemoglobin is stable at 10.1 hematocrit 29.9, blood cultures at 24 hours had no growth and urine cultures grew GNR reviewing patient's previous hospital admission urine cultures were positive for Klebsiella therefore this may likely be colonization. Will continue to monitor patient's symptoms and labs. Currently patient is on ceftriaxone and will increase azithromycin to 500 with the last dose tomorrow. Exam Vital Signs Temp Pulse Resp BP Pulse Ox O2 Del Method O2 Flow Rate 98.1 F 88 16 111/61 95 Room Air 1 10/29/24 08:00 10/29/24 08:00 10/29/24 08:00 10/29/24 08:00 10/29/24 08:00 10/29/24 08:00 10/29/24 07:52 Narrative Exam GENERAL: elderly pleasant female, very hard of hearing, saturating on room air NEURO: no focal neurological deficits HEENT: Atraumatic, Normocephalic. mucous membranes moist. Eyes open, symmetrical, & clear, left side chest chemo port present HEART: Normal Heart Sounds LUNGS: Clear to auscultation with no wheezing or crackles. ABDOMEN: soft, non-distended, non-tender, bowel sounds heard, no guarding or rebound tenderness, insulin pump glucometer attached SKIN: No Rash or ecchymoses EXTREMITIES: No edema, tenderness, able to move all 4 extremities, pedal pulses palpated Objective Labs 10/30/24 05:17 10/30/24 05:17 Labs: Laboratory Results - last 24 hr 10/28/24 10/29/24 18:37 04:49 WBC 29.9 H D RBC 3.04 L Hgb 10.1 L Hct 29.9 L MCV 98 MCH 33.2 MCHC 33.8 RDW Std Deviation 51.5 H Plt Count 202 D Neut % (Auto) 85 H Lymph % (Auto) 4 L Wharton % (Auto) 7 Eos % (Auto) 0 Baso % (Auto) 0 Neut # (Auto) 25.4 H Lymph # (Auto) 1.3 Wharton # (Auto) 2.1 H Eos # (Auto) 0.0 Baso # (Auto) 0.1 Immature Gran # (Auto) 0.92 H Absolute Nucleated RBC 0.00 Immature Gran % 3 H Nucleated RBC % 0 Sodium 141 138 Potassium 4.7 D 4.6 Chloride 109 H 108 H Carbon Dioxide 22.8 18.5 L Anion Gap 9 12 BUN 20 25 H Creatinine 1.0 1.2 Estim Creat Clear Calc 38.7 L 32.1 L eGFR 57 L 46 L BUN/Creatinine Ratio 20 21 H Glucose 207 H D 322 H D Calculated Osmolality 289 292 Calcium 8.5 8.0 L Corrected Calcium 9.4 9.0 Phosphorus 3.7 4.1 Magnesium 2.5 Total Bilirubin 0.7 AST 22 ALT 14 Alkaline Phosphatase 78 Total Protein 4.6 L Albumin 2.9 L 2.8 L Globulin 1.8 L Albumin/Globulin Ratio 1.6 ABG Interpretation ABG results: 10/28/24 08:30 VBG pH 7.46 VBG pCO2 35 L VBG pO2 58 VBG Base Excess 1 Quality Measures Quality Measures sepsis Current suspected stage: ruled out Possible source: pulmonary Blood cultures ordered: completed in ED Antibiotic ordered: Yes Advance care planning discussed with:: patient Assessment & Plan Assessment Current Active Medications: Generic Name Dose Route Start Last Admin Trade Name Freq PRN Reason Stop Dose Admin Acetaminophen 650 mg 10/28/24 16:41 Acetaminophen 325 Mg Tablet PO 11/27/24 08:57 Q6H PRN Fever >100.3 and pain Albuterol/Ipratropium 3 ml 10/28/24 14:41 Albuterol/Ipratropium (Duoneb) Rt Kiley 3 Ml Nebu INH 11/27/24 14:59 Q4HRRT PRN wheezing Clopidogrel Bisulfate 75 mg 10/28/24 10:30 10/29/24 09:09 Clopidogrel Bisulfate 75 Mg Tablet PO 11/27/24 10:29 75 mg QDAY ENRIQUE Administration Cyclobenzaprine HCl 5 mg 10/28/24 16:34 Cyclobenzaprine 5 Mg Tablet PO 11/27/24 20:59 BID PRN muscle spasm Protocol Dextrose 25 ml 10/28/24 09:04 Dextrose 50%-Water Inj 50 Ml Syringe IV 11/27/24 09:03 Q15MIN PRN BG 50-70 responsive npo pt Dextrose 50 ml 10/28/24 09:04 Dextrose 50%-Water Inj 50 Ml Syringe IV 11/27/24 09:03 Q15MIN PRN BG <50 OR BG <70 & pt unresponsive Enoxaparin Sodium 40 mg 10/28/24 09:00 10/29/24 09:09 Enoxaparin Sod Inj 40 Mg/0.4 Ml Syringe SC 11/11/24 08:59 40 mg QDAY ENRIQUE Administration Glucagon 1 mg 10/28/24 09:04 Glucagon Inj 1 Mg Vial IM Q15MIN PRN BG <70, and no IV access Ceftriaxone Sodium/Dextrose 1 gm in 50 mls @ 100 mls/hr 10/29/24 09:00 10/29/24 09:08 Rocephin/D5w 1gm Iv Premix IV 11/05/24 08:59 100 mls/hr QDAY ENRIQUE Administration Azithromycin 250 mg/ Sodium 250 mls @ 250 mls/hr 10/29/24 12:14 Chloride IV 10/29/24 13:13 X1 ONE Azithromycin 500 mg/ Sodium 250 mls @ 250 mls/hr 10/30/24 09:00 Chloride IV 10/31/24 08:59 QDAY ENRIQUE Insulin Glargine 8 unit 10/29/24 09:00 10/29/24 09:09 Insulin Glargine (Lantus) 5 Unit/0.05 Ml (Per 5 Units) SC 11/28/24 08:59 8 unit QDAY NERIQUE Administration Insulin Human Lispro 0 unit 10/29/24 11:30 10/29/24 11:07 Insulin Lispro (Admelog) 1 Unit/0.01 Ml Unit SC 11/27/24 11:29 5 unit AC ENRIQUE Administration Protocol Insulin Human Lispro 3 unit 10/29/24 11:30 10/29/24 11:06 Insulin Lispro (Admelog) 1 Unit/0.01 Ml Unit SC 11/28/24 11:29 3 unit ACHS ENRIQUE Administration Levetiracetam 1,000 mg 10/28/24 10:00 10/29/24 09:09 Levetiracetam 250 Mg Tablet PO 11/27/24 09:59 1,000 mg BID ENRIQUE Administration Sennosides 8.8 mg 10/28/24 16:39 Sennosides Syrup 8.8 Mg/5 Ml Udc PO 11/27/24 16:38 QDAY PRN CONSTIPATION Protocol Plan Ms. Lopez is an 79-year-old female, very hard of hearing, with past medical history significant for type 1 diabetes (on insulin pump), arthritis, gastric cancer status post gastrectomy in 2018, hypertension, history of CVA without residual deficits and seizure disorder presented to the ED after having shortness of breath, fever and chills since this morning. # Possible sepsis - ruled out #Acute Hypoxic respiratory Failure 09/04 #Community acquired pneumonia #Concern for PE - ruled out -Patient states that she has noticed a mild nonproductive cough for the past 3 days -Although sepsis alert is called in the ED due to SIRS 10/04: tachycardia, tachyapnea and fever of 103.6, there is no evidence of end organ damage, Pt is saturating 98% on 2L O2, BC are pending -Due to pts gastric cancer history and hx of CVA, WELLS criteria for PE is calculated to be 1.5 Low risk group: 1.3% chance of PE in an ED population -Chest x-ray shows significant pneumonia in the lingular segment left upper lobe -CTA shows extensive pneumonia lingular segment left upper lobe mild bibasilar pneumonia and negative for pulmonary artery emboli -EKG sinus tachycardia with ST depressions -Procal 0.76 -Cocci IgM negative Plan: -Supplemental oxygen as needed -DuoNebs as needed -Urine cultures grew GNR likely colonization as pt denies any symptoms of UTI including dysuria and urgency. Urinalysis was clean -Blood cultures no growth at 24hrs -Azithromycin and ceftriaxone started 10/28- #Hypokalemia-improved #Hypomagnesemia -resolved -On admission potassium is 3.3 and magnesium is 1.5 -40 mEq of potassium and 4 g of magnesium is repleted #Type 1 diabetes -A1c 6.9 on 09/21/24 -Patient is on insulin pump which she turned off this morning -Lispro 3 units ACHS and Lantus 8 units -Plus insulin sliding scale with hypoglycemia protocol in place #Primary hypertension -Patient's home medications include hydralazine 25 mg 3 times daily, carvedilol 12.5 mg twice daily and amlodipine 5 mg daily -Blood pressure is within normal limits, will hold antihypertensive therapy for now #History of seizure disorder -Patient is diagnosed with seizure disorder in 2021 -Resumed home Keppra 1000 mg twice daily #History of gastric cancer status post-gastrectomy 2017 #History of CVA without residual deficits #History of arthritis -Started the patient on Plavix 75 mg daily -Resumed home cyclobenzaprine 5 mg at BID PRN Health Maintenance Disposition: Telemetry for AHRF 2/2 pneumonia requiring oxygen and IV antibiotics DVT Prophylaxis: enoxaparin 40mg Qdaily GI Prophylaxis: not needed Diet: carbohydrate consistent low Lines: Peripheral lines Code status: Full Assessment and plan discussed with my attending physician Dr. Lisy Luque (PGY-1)- Internal medicine resident Attending Provider Attestation/Addendum I reviewed labs, imaging, EKG, home medications and prior available records. Face to face evaluation was performed by me. I have personally examined the patient and discussed assessment and plan with the IM team. I reviewed the resident note and agree with the plan with exceptions as below. Acute hypoxic respiratory failure, improved Generalized weakness Acute febrile illness Sepsis secondary to pneumonia, left upper lobe Hypokalemia Insulin-dependent diabetes mellitus, on insulin pump, uncontrolled, new complication History of gastric cancer Started ceftriaxone/azithromycin CTA showed no PE but significant left-sided pneumonia WBC increased. Could be in the setting of hyperglycemia. Management as below Cocci IgM is negative. Follow-up cultures: Blood cultures negative to date. Urine culture showed gram-negative rods Replete potassium as needed and monitor BMP Insulin pump was turned off. Started insulin Lantus. Increased insulin Lantus. Started sliding scale insulin. Monitor fingersticks Outpatient follow-up with oncology
[2024-10-30] VITALS: BP 118/53; PULSE 81; PULSE 82; RESP 17; TEMP 37.2; O2SAT 96
[2024-10-30 04:00] VITALS: BP 133/53; PULSE 74; PULSE 81; RESP 19; TEMP 36.3; O2SAT 99
[2024-10-30 06:00] VITALS: BMI 22.4
[2024-10-30 06:03] LABS: Basophils # (Auto) 0.1 Thou/mm3 (0.0-0.2); Basophils % (Auto) 0 % (0-2.5); Eosinophils # (Auto) 0.1 Thou/mm3 (0.0-0.5); Eosinophils % (Auto) 1 % (0-10); Hematocrit 28.3 % (36.0-46.0); Hemoglobin 9.6 g/dL (12.0-16.0); Immature Granulocytes % (Auto) 1 % (0-0); Immature Granulocytes Auto 0.16 Thou/mm3 (0.00-0.00); Lymphocytes # (Auto) 1.4 Thou/mm3 (1.0-4.8); Lymphocytes % (Auto) 9 % (10-50); Mean Corpuscular HGB Conc 33.9 g/dl (31.0-37.0); Mean Corpuscular Volume 97 fL (80-100); Monocytes # (Auto) 1.2 Thou/mm3 (0.0-0.8); Monocytes % (Auto) 7 % (0-12); Neutrophils # (Auto) 13.5 Thou/mm3 (1.8-7.7); Neutrophils % (Auto) 82 % (37-80); Nucleated Red Blood Cell % 0 /100 WBC (0); Platelet Count 169 Thou/mm3 (140-440); RDW Standard Deviation 49.5 fL (36.4-46.3); Red Blood Count 2.91 Miln/mm3 (4.00-5.20); White Blood Count 16.4 Thou/mm3 (3.6-11.0)
[2024-10-30 06:38] LABS: Alanine Aminotransferase 13 U/L (10-49); Albumin, Serum 2.8 gm/dL (3.4-4.8); Albumin/Globulin Ratio 1.6 (1.2-2.2); Alkaline Phosphatase 80 U/L (46-116); Anion Gap 9 (7-16); Aspartate Amino Transferase 27 U/L (0-34); BUN/Creatinine Ratio 25 Ratio (12-20); Bilirubin,Total 0.5 mg/dL (0.3-1.2); Blood Urea Nitrogen 25 mg/dL (9-23); Calcium 8.2 mg/dL (8.3-10.6); Calcium (Corrected) 9.2 mg/dL (8.5-10.1); Carbon Dioxide 22.2 mMol/L (20.0-31.0); Chloride 109 mMol/L (98-107); Estimated Creatinine Clearance 38.7 mL/min (>60); Globulin 1.8 gm/dL (2.3-3.5); Glucose 123 mg/dL (74-106); Magnesium 2.2 mg/dL (1.6-2.6); Osmolality,Calculated 284 (275-295); Phosphorous 2.8 mg/dL (2.4-5.1); Potassium 4.1 mMol/L (3.4-5.1); Sodium 140 mMol/L (136-145); Total Protein 4.6 gm/dL (5.7-8.2); eGFR 57 See Note
[2024-10-30] MEDS: INSULIN LISPRO (AdmeLOG) 1 UNIT/0.01 ML UNIT 3 UNIT SC ×2 (07:47→11:36)
[2024-10-30 08:00] VITALS: BP 139/67; PULSE 74; PULSE 77; RESP 15; TEMP 36.2; O2SAT 99
[2024-10-30] MEDS: ENOXAPARIN SOD INJ 40 MG/0.4 ML SYRINGE SC (08:50)
[2024-10-30] MEDS: CLOPIDOGREL BISULFATE 75 MG TABLET PO (08:50)
[2024-10-30] MEDS: cefTRIAXone/D5w 1gm IV premix 1 GM/50 ML BAG IV (08:50)
[2024-10-30] MEDS: levETIRAcetam 250 MG TABLET 1000 MG PO (08:50)
[2024-10-30] MEDS: INSULIN GLARGINE (Lantus) 5 UNIT/0.05 ML (PER 5 UNITS) 8 UNIT SC (08:51)
--- NOTE | 2024-10-30 09:23 | PC.NURSE ---
Per lisa Mistry for patient to shower.
[2024-10-30] MEDS: AZITHROMYCIN INJ 500 MG in SODIUM CHLORIDE 0.9% 250 ML 250 ML 250 MG IV (09:29)
--- NOTE | 2024-10-30 11:11 | PC.NURSE ---
Oxygen test: Room air at rest-96%, room air with exercise-93%, SPO2 on O2 (1LNC) with exercise-98%
[2024-10-30] MEDS: INSULIN LISPRO (AdmeLOG) 1 UNIT/0.01 ML UNIT SC (11:36)
[2024-10-30 12:00] VITALS: BP 136/90; PULSE 70; PULSE 72; RESP 14; TEMP 36.4; O2SAT 96
--- NOTE | 2024-10-30 12:01 | ESDS_ITS ---
Planned Discharge Date 10/30/24 DS: Providers Provider Date of admission: 10/28/24 08:58 Primary care physician: Roc Rajan MD Admitting Provider: John Paul Wasserman MD Attending Provider on Admission: John Paul Wasserman MD Attending Provider on DC: Khoa South MD Discharging Provider: Khoa South MD DS: Diagnosis Problem List Completed Was Problem List Reviewed/Reconciled?: Yes Hospital Course Hospital Course Hospital course: Isabel Lopez is an 79-year-old female with a past medical history of type 1 diabetes mellitus (on insulin pump), arthritis, gastric cancer status postgastrectomy in 2018, hypertension, CVA without residual deficits, and seizure disorder who presented on 10/28 with shortness of breath, fever, chills since morning of admission. She did endorse a mild, nonproductive cough for 3 days prior to admission but denied any sick contacts or recent travel. Also denies any chest discomfort, palpitations, orthopnea, or PND. In ED, HR 103, RR 25, temperature 103.6 ?F, saturating 79% on RA proved to 97% on 4 L nasal cannula. WBC 30, Pro-Jaxson 0.76, Mg 1.5, K 3.3. CXR showed significant pneumonia in left upper lobe and CTA showed the same and negative for PE. She was admitted for management of AHRF secondary to commune acquired pneumonia azithromycin and ceftriaxone. Blood and urine cultures obtained and urine cultures grew GNR, although patient denied any dysuria or urgency. Glucose also noted to increase to 322 but eventually managed with 8 units Lantus and 3 units lispro ACHS. Otherwise, throughout hospital course there were no acute events. No recurrent fevers, WBC down trended from 30 to 16, and patient was on 1 L nasal cannula saturating 96% on day of discharge. Nurse walked patient and with exercise O2 remained above 90% and patient was deemed stable for discharge with antibiotics to complete course with strict return precautions to the ED. Diagnoses during admission: #Acute hypoxic respiratory failure #Community acquired pneumonia #Hypokalemia, resolved #Hypomagnesemia, resolved #Type 1 diabetes on insluin pump #Primary hypertension #History of seizure disorder #History of gastric cancer status post-gastrectomy 2018 #History of CVA without residual deficits #History of arthritis Discharge instructions: - Take two 500 mg tablets of amoxicillin three times per day, for a total of four more days to complete antibiotic course - Continue using insulin pump for blood glucose control - Continue taking all other home medications as prescribed - Follow-up with your PCP within 1 week of discharge - Return to the ED if symptoms worsen or recur ----- Plan discussed with attending physician Dr. Lisy South MD PGY-1 Internal Medicine Time Spent with Patient Time attestation: Total time spent providing and/or coordinating discharge services: Exam Vital Signs Temp Pulse Resp BP Pulse Ox O2 Del Method O2 Flow Rate 97.2 F 74 15 139/67 H 99 Nasal Cannula 1 10/30/24 08:00 10/30/24 08:00 10/30/24 08:00 10/30/24 08:00 10/30/24 08:00 10/30/24 08:00 10/30/24 08:00 Narrative Exam GENERAL: elderly pleasant female, very hard of hearing, saturating on room air NEURO: no focal neurological deficits HEENT: Atraumatic, Normocephalic. mucous membranes moist. Eyes open, symmetrical, & clear, left side chest chemo port present HEART: Normal Heart Sounds LUNGS: Clear to auscultation with no wheezing or crackles. ABDOMEN: soft, non-distended, non-tender, bowel sounds heard, no guarding or rebound tenderness, insulin pump glucometer attached SKIN: No Rash or ecchymoses EXTREMITIES: No edema, tenderness, able to move all 4 extremities, pedal pulses palpated Discharge Plan Plan Patient Disposition: HOME (Self Care) Care Plan Goals: - Take two 500 mg tablets of amoxicillin three times per day, for a total of four more days to complete antibiotic course - Continue using insulin pump for blood glucose control - Continue taking all other home medicatiosn as prescribed - Follow-up with your PCP within 1 week of discharge - Return to the ED if symptoms worsen or recur Prescriptions/Referrals Prescriptions/Med Rec: New amoxicillin 500 mg tablet 1,000 mg PO Q8H 4 Days Qty: 24 0RF Continued atorvastatin [Lipitor] 10 MG tablet 5 mg PO DAILY Qty: 0 clopidogrel [Plavix] 75 MG tablet 75 mg PO DAILY Qty: 0 losartan 100 mg tablet 100 mg PO QDAY Patient Comments: TAKE 1 TABLET BY MOUTH EVERY DAY amlodipine 5 mg tablet 5 mg PO QDAY Patient Comments: GENERIC FOR NORVASC. TAKE 1 TABLET BY MOUTH ONCE DAILY insulin glargine [Lantus U-100 Insulin] 100 unit/mL solution 18 unit subcut QPM Qty: 10 1RF Rx Instructions: 18 U at bedtime in case of insulin pump failure levetiracetam [Keppra] 500 mg tablet 1,000 mg PO BID Qty: 30 1RF hydralazine 25 mg tablet 25 mg PO QID Patient Comments: TAKE 1 TABLET BY MOUTH THREE TIMES DAILY cyclobenzaprine 5 mg tablet 5 mg PO BID Patient Comments: TAKE 1 TABLET BY MOUTH TWICE DAILY carvedilol 12.5 mg tablet 12.5 mg PO BID Rx Instructions: must administer with a meal/food Referrals: Roc Rajan MD [Primary Care Provider] - Patient/Caregiver Discharge Instructions Print Language: Pakistani Stand Alone Forms: Vicky Award Info., Patient Portal Info Letter Discharge Order Discharge Orders: Discharge (Routine); Ordered 10/30/24 Ordered By: Khoa South Quality Discharge Quality Measures VTE prophylaxis MD Attestestation MD Attestation I reviewed labs, imaging, EKG, home medications and prior available records. Face to face evaluation was performed by me. I have personally examined the patient and discussed assessment and plan with the IM team. I reviewed the resident note and agree with the plan with exceptions as below. Acute hypoxic respiratory failure, improved Generalized weakness Acute febrile illness Sepsis secondary to pneumonia, left upper lobe Hypokalemia Insulin-dependent diabetes mellitus, on insulin pump, uncontrolled, new complication History of gastric cancer She is on room air Will discharge on oral amoxicillin CTA showed no PE but significant left-sided pneumonia WBC improved. Monitor CBC as outpatient Cocci IgM is negative. Follow-up cultures: Blood cultures negative to date. Urine culture showed gram-negative rods Monitor potassium as outpatient Continue insulin via insulin pump and monitor fingersticks Outpatient follow-up with oncology Time spent is 40 minutes. More than 50% of the time was spent on patient education and coordination of care.
--- NOTE | 2024-10-30 13:04 | PC.NURSE ---
Patient discharge pending patients returning for transportation at approximately 14:30.
[2024-10-30 13:38] LABS: Cocci Serology, IgG Negative (Negative)
[2024-10-30 13:46] VITALS: PULSE 70; RESP 18; RESP 96
== END 2024-10-30 14:27 | disposition home or self-care (01) | DRG 193 ==
LOC: SERX 09:10 → SERHOLD 09:14 → S2NX 15:48
PROVIDERS: Student in an Organized Health Care Education/Training Program; Admitting Provider Student in an Organized Health Care Education/Training Program; Emergency Provider Emergency Medicine; PCP Internal Medicine; Visit Provider Student in an Organized Health Care Education/Training Program
DX: J18.9 Pneumonia, unspecified organism (principal); J96.01 Acute respiratory failure with hypoxia; I10 Essential (primary) hypertension; E10.9 Type 1 diabetes mellitus without complications; E83.42 Hypomagnesemia; M19.90 Unspecified osteoarthritis, unspecified site; E87.6 Hypokalemia; H91.90 Unspecified hearing loss, unspecified ear; G40.909 Epilepsy, unspecified, not intractable, without status epilepticus; Z85.028 Personal history of other malignant neoplasm of stomach; Z86.73 Personal history of transient ischemic attack (TIA), and cerebral infarction without residual deficits; Z96.41 Presence of insulin pump (external) (internal); Z79.899 Other long term (current) drug therapy; Z79.02 Long term (current) use of antithrombotics/antiplatelets; Z90.3 Acquired absence of stomach [part of]
CPT/HCPCS: 36415; 71045; 71275; 80053; 80069; 81001; 82803; 83605; 83690; 83735; 83880; 84100; 84145; 84484; 85025; 85610; 85730; 86331; 86635; 87040; 87077; 87081; 87086; 87186; 87400; 87811; 93005; 96365; 96366; 96367; 96368; 96372; 96375; 99291; A4649; J0456; J0696; J1650; J1815; J3475; J3480; J7030; J7050; Q9967; A9270

== ENCOUNTER → 2024-11-03 | Outpatient (CLI) | payer MEDICARE, SELFPAY ==
[2024-11-03 09:41] LABS: Basophils # (Auto) 0.1 Thou/mm3 (0.0-0.2); Basophils % (Auto) 1 % (0-2.5); Eosinophils # (Auto) 0.1 Thou/mm3 (0.0-0.5); Eosinophils % (Auto) 2 % (0-10); Hematocrit 31.8 % (36.0-46.0); Hemoglobin 10.8 g/dL (12.0-16.0); Immature Granulocytes % (Auto) 2 % (0-0); Immature Reticulocyte Fraction 28.6 % (3.0-15.9); Lymphocytes # (Auto) 1.3 Thou/mm3 (1.0-4.8); Lymphocytes % (Auto) 21 % (10-50); Mean Corpuscular Hemoglobin 32.7 pg (25.0-35.0); Mean Corpuscular Volume 96 fL (80-100); Monocytes # (Auto) 0.7 Thou/mm3 (0.0-0.8); Monocytes % (Auto) 11 % (0-12); Neutrophils # (Auto) 4.1 Thou/mm3 (1.8-7.7); Neutrophils % (Auto) 64 % (37-80); Nucleated Red Blood Cell % 0 /100 WBC (0); Platelet Count 256 Thou/mm3 (140-440); RDW Standard Deviation 47.6 fL (36.4-46.3); Reticulocyte % (Auto) 1.2 % (0.5-1.5); Reticulocyte Absolute Auto 40.9 Biln/L (25.0-75.0); Reticulocyte Hgb Content 37.1 pg (28.0-35.0); White Blood Count 6.4 Thou/mm3 (3.6-11.0)
[2024-11-03 09:51] LABS: Glucose Estimated Average 140 mg/dL (80-131); Hemoglobin A1C 6.5 % Hgb (4.8-6.0)
[2024-11-03 10:05] LABS: Vitamin D 25 Hydroxy Total 48.3 ng/mL (7.3-40.2)
[2024-11-03 10:06] LABS: Alanine Aminotransferase 17 U/L (10-49); Albumin, Serum 3.3 gm/dL (3.4-4.8); Albumin/Globulin Ratio 1.7 (1.2-2.2); Alkaline Phosphatase 82 U/L (46-116); Anion Gap 8 (7-16); Aspartate Amino Transferase 25 U/L (0-34); BUN/Creatinine Ratio 13 Ratio (12-20); Bilirubin,Total 0.5 mg/dL (0.3-1.2); Blood Urea Nitrogen 12 mg/dL (9-23); Calcium (Corrected) 9.6 mg/dL (8.5-10.1); Carbon Dioxide 28.4 mMol/L (20.0-31.0); Chloride 108 mMol/L (98-107); Creatinine (Component) 0.9 mg/dL (0.6-1.3); Free T4 (Free Thyroxine) 1.06 ng/dL (0.89-1.76); Glucose 153 mg/dL (74-106); Osmolality,Calculated 289 (275-295); Phosphorous 3.8 mg/dL (2.4-5.1); Potassium 4.8 mMol/L (3.4-5.1); Sodium 144 mMol/L (136-145); Thyroid Stimulating Hormone 2.65 uIU/mL (0.55-4.78); Total Protein 5.3 gm/dL (5.7-8.2); eGFR > 60 See Note
[2024-11-03 10:10] LABS: Ferritin 80 ng/mL (7.3-270.7); Iron 55 mcg/dL (50-170); Percent Iron Saturation 24 % (20-55); Total Iron Binding Capacity 225 mcg/dL (250-425); Unsaturated Iron Binding 170 (225-295)
[2024-11-03 10:23] LABS: Creatinine MALB Rnd Ur 124 mg/dL (30-125); Microalbumin Creat Ratio 73 mg/gCrea (<30); Microalbumin, Random Urine 91 mg/L (0-300)
== END | disposition home or self-care (01) ==
LOC: COPL 08:22
PROVIDERS: PCP Internal Medicine; Visit Provider Internal Medicine Endocrinology, Diabetes & Metabolism
DX: E55.9 Vitamin D deficiency, unspecified (principal); E10.59 Type 1 diabetes mellitus with other circulatory complications; C16.9 Malignant neoplasm of stomach, unspecified; D51.3 Other dietary vitamin B12 deficiency anemia
CPT/HCPCS: 36415; 80053; 82043; 82306; 82570; 82728; 83036; 83540; 83550; 84100; 84439; 84443; 85025; 85046

== ENCOUNTER → 2025-01-06 | Outpatient (CLI) | payer MEDICARE, SELFPAY ==
--- NOTE | 2025-01-06 12:30 | XR_ITS ---
Examination: Ultrasound abdominal aorta TECHNIQUE: Grayscale sonographic images abdominal aorta INDICATIONS: Screening examination FINDINGS: Transverse dimension proximal aorta 2.1 cm mid aorta 1.4 cm distal aorta 1.2 cm right iliac 0.7 cm left iliac 0.9 cm IMPRESSION: Negative for abdominal aortic aneurysm
== END | disposition home or self-care (01) ==
LOC: CDIM 12:27
PROVIDERS: Referring Provider Nurse Practitioner Family; Visit Provider Nurse Practitioner Family
DX: R09.89 Other specified symptoms and signs involving the circulatory and respiratory systems (principal)
CPT/HCPCS: 76770

== ENCOUNTER → 2025-01-17 | Outpatient (CLI) | payer MEDICARE, SELFPAY ==
[2025-01-17 08:10] LABS: Collection Type, Urine Clean Catch
[2025-01-17 08:40] LABS: Basophils % (Auto) 1 % (0-2.5); Eosinophils # (Auto) 0.1 Thou/mm3 (0.0-0.5); Eosinophils % (Auto) 1 % (0-10); Hematocrit 32.8 % (36.0-46.0); Hemoglobin 11.4 g/dL (12.0-16.0); Immature Granulocytes % (Auto) 0 % (0-0); Immature Granulocytes Auto 0.02 Thou/mm3 (0.00-0.00); Lymphocytes # (Auto) 1.5 Thou/mm3 (1.0-4.8); Lymphocytes % (Auto) 30 % (10-50); Mean Corpuscular HGB Conc 34.8 g/dl (31.0-37.0); Mean Corpuscular Hemoglobin 33.3 pg (25.0-35.0); Mean Corpuscular Volume 96 fL (80-100); Monocytes # (Auto) 0.5 Thou/mm3 (0.0-0.8); Monocytes % (Auto) 10 % (0-12); Neutrophils # (Auto) 2.9 Thou/mm3 (1.8-7.7); Neutrophils % (Auto) 58 % (37-80); Nucleated Red Blood Cell % 0 /100 WBC (0); Platelet Count 277 Thou/mm3 (140-440); RDW Standard Deviation 48.3 fL (36.4-46.3); Red Blood Count 3.42 Miln/mm3 (4.00-5.20)
[2025-01-17 08:45] LABS: Bilirubin,Urine Negative (Negative); Blood,Urine Negative (Negative); Clarity,Urine Clear (Clear/Hazy); Color,Urine Yellow (Lt Yel-Yel); Glucose, Urine Negative (Negative); Hyaline Casts,Urine < 1 /hpf (0-1); Ketones,Urine Negative (Negative); Leukocyte Esterase,Urine Positive (Negative); Nitrite,Urine Negative (Negative); Protein,Urine Negative (Neg - Trace); RBC,Urine 3 /hpf (0-3); Specific Gravity,Urine 1.018 (1.001-1.035); Squamous Epithelial Cell,Urine 1 /hpf (0-5); Urobilinogen,Urine Negative mg/dL (0.0-1.0); WBC,Urine 6 /hpf (0-5)
[2025-01-17 08:48] LABS: Glucose Estimated Average 140 mg/dL (80-131); Hemoglobin A1C 6.5 % Hgb (4.8-6.0)
[2025-01-17 08:53] LABS: Creatinine MALB Rnd Ur 107 mg/dL (30-125); Microalbumin Creat Ratio 25 mg/gCrea (<30); Microalbumin, Random Urine 27 mg/L (0-300)
[2025-01-17 09:07] LABS: Alanine Aminotransferase 26 U/L (10-49); Albumin, Serum 3.7 gm/dL (3.4-4.8); Albumin/Globulin Ratio 2.1 (1.2-2.2); Alkaline Phosphatase 70 U/L (46-116); Anion Gap 9 (7-16); Aspartate Amino Transferase 30 U/L (0-34); BUN/Creatinine Ratio 19 Ratio (12-20); Bilirubin,Total 0.9 mg/dL (0.3-1.2); Blood Urea Nitrogen 21 mg/dL (9-23); Calcium 8.8 mg/dL (8.3-10.6); Carbon Dioxide 29.3 mMol/L (20.0-31.0); Cardiac Risk Estimate 1.5 RATIO (3.7-5.6); Chloride 106 mMol/L (98-107); Cholesterol 103 mg/dL (132-200); Creatinine (Component) 1.1 mg/dL (0.6-1.3); Globulin 1.8 gm/dL (2.3-3.5); Glucose 195 mg/dL (74-106); HDL Cholesterol 67 mg/dL (40-60); LDL Cholesterol,Calculated 25 mg/dL (0-130); Osmolality,Calculated 294 (275-295); Potassium 4.3 mMol/L (3.4-5.1); Sodium 144 mMol/L (136-145); Thyroid Stimulating Hormone 1.08 uIU/mL (0.55-4.78); Total Protein 5.5 gm/dL (5.7-8.2); Triglycerides 54 mg/dL (30-150); eGFR 51 See Note
== END | disposition home or self-care (01) ==
LOC: COPL 07:42
PROVIDERS: PCP Internal Medicine; Referring Provider Internal Medicine; Visit Provider Internal Medicine
DX: N17.9 Acute kidney failure, unspecified (principal); I10 Essential (primary) hypertension; E11.9 Type 2 diabetes mellitus without complications; E78.5 Hyperlipidemia, unspecified
CPT/HCPCS: 36415; 80053; 80061; 81001; 82043; 82570; 83036; 84439; 84443; 85025

== ENCOUNTER → 2025-02-14 | Outpatient (CLI) | payer MEDICARE, SELFPAY ==
--- NOTE | 2025-02-14 15:45 | XR_ITS ---
Examination: Screening digital mammography, bilateral Computer aided detection 3-D breast Tomosynthesis, bilateral Date and time of exam: February 14, 2025 1536 hours Compared to mammograms dating to October 03, 2022 Indication: Screening Technique: Nonmagnified MLO, CC views of the breasts to been obtained, reconstructed from 3-D Tomosynthesis images. R2 computer aided detection program utilized for evaluation of suspicious masses and/or abnormal calcifications. 3-D Tomosynthesis images obtained. Findings: The breasts are heterogeneously dense, which may obscure small masses Benign calcifications. No interval suspicious masses Impression: BI-RADS category II: Benign Findings. Recommend 1 year follow-up mammogram.
== END | disposition home or self-care (01) ==
LOC: CDIM 15:25
PROVIDERS: Referring Provider Internal Medicine; Visit Provider Internal Medicine
DX: Z12.31 Encounter for screening mammogram for malignant neoplasm of breast (principal); R92.333 Mammographic heterogeneous density, bilateral breasts; R92.1 Mammographic calcification found on diagnostic imaging of breast
CPT/HCPCS: 77063; 77067

== ENCOUNTER → 2025-05-17 | Outpatient (CLI) | payer MEDICARE, SELFPAY ==
[2025-05-17 12:01] LABS: Collection Type, Urine Clean Catch
[2025-05-17 12:32] LABS: Basophils # (Auto) 0.1 Thou/mm3 (0.0-0.2); Basophils % (Auto) 1 % (0-2.5); Eosinophils # (Auto) 0.0 Thou/mm3 (0.0-0.5); Eosinophils % (Auto) 1 % (0-10); Hematocrit 32.9 % (36.0-46.0); Hemoglobin 11.1 g/dL (12.0-16.0); Immature Granulocytes Auto 0.02 Thou/mm3 (0.00-0.00); Lymphocytes # (Auto) 1.0 Thou/mm3 (1.0-4.8); Lymphocytes % (Auto) 20 % (10-50); Mean Corpuscular HGB Conc 33.7 g/dl (31.0-37.0); Mean Corpuscular Hemoglobin 32.7 pg (25.0-35.0); Mean Corpuscular Volume 97 fL (80-100); Monocytes # (Auto) 0.5 Thou/mm3 (0.0-0.8); Monocytes % (Auto) 11 % (0-12); Neutrophils # (Auto) 3.3 Thou/mm3 (1.8-7.7); Neutrophils % (Auto) 67 % (37-80); Nucleated Red Blood Cell # 0.00 Thou/mm3 (0.00-0.00); Nucleated Red Blood Cell % 0 /100 WBC (0); Platelet Count 255 Thou/mm3 (140-440); RDW Standard Deviation 45.7 fL (36.4-46.3); Red Blood Count 3.39 Miln/mm3 (4.00-5.20); White Blood Count 4.9 Thou/mm3 (3.6-11.0)
[2025-05-17 12:39] LABS: Bilirubin,Urine Negative (Negative); Blood,Urine Negative (Negative); Clarity,Urine Clear (Clear/Hazy); Color,Urine Yellow (Lt Yel-Yel); Glucose, Urine 4+ (Negative); Hyaline Casts,Urine < 1 /hpf (0-1); Ketones,Urine Negative (Negative); Leukocyte Esterase,Urine Positive (Negative); Nitrite,Urine Negative (Negative); PH,Urine 5.5 (5.0-7.0); Protein,Urine Trace (Neg - Trace); RBC,Urine 5 /hpf (0-3); Specific Gravity,Urine 1.019 (1.001-1.035); Squamous Epithelial Cell,Urine 1 /hpf (0-5); Urobilinogen,Urine Negative mg/dL (0.0-1.0); WBC,Urine 20 /hpf (0-5)
[2025-05-17 12:42] LABS: Glucose Estimated Average 146 mg/dL (80-131); Hemoglobin A1C 6.7 % Hgb (4.8-6.0)
[2025-05-17 12:52] LABS: Vitamin D 25 Hydroxy Total 45.1 ng/mL (7.3-40.2)
[2025-05-17 12:58] LABS: Creatinine MALB Rnd Ur 130 mg/dL (30-125); Microalbumin Creat Ratio 55 mg/gCrea (<30); Microalbumin, Random Urine 72 mg/L (0-300)
[2025-05-17 13:01] LABS: Alanine Aminotransferase 16 U/L (10-49); Albumin, Serum 3.7 gm/dL (3.4-4.8); Albumin/Globulin Ratio 1.9 (1.2-2.2); Alkaline Phosphatase 81 U/L (46-116); Anion Gap 9 (7-16); Aspartate Amino Transferase 24 U/L (0-34); BUN/Creatinine Ratio 12 Ratio (12-20); Bilirubin,Total 0.5 mg/dL (0.3-1.2); Blood Urea Nitrogen 14 mg/dL (9-23); Calcium 9.3 mg/dL (8.3-10.6); Calcium (Corrected) 9.5 mg/dL (8.5-10.1); Carbon Dioxide 29.8 mMol/L (20.0-31.0); Chloride 103 mMol/L (98-107); Creatinine (Component) 1.2 mg/dL (0.6-1.3); Globulin 1.9 gm/dL (2.3-3.5); Glucose 347 mg/dL (74-106); Osmolality,Calculated 297 (275-295); Phosphorous 3.9 mg/dL (2.4-5.1); Potassium 4.6 mMol/L (3.4-5.1); Sodium 142 mMol/L (136-145); Thyroid Stimulating Hormone 0.92 uIU/mL (0.55-4.78); Total Protein 5.6 gm/dL (5.7-8.2); eGFR 45 See Note
[2025-05-17 16:39] LABS: Free T4 (Free Thyroxine) 1.00 ng/dL (0.89-1.76)
== END | disposition home or self-care (01) ==
LOC: COPL 10:30
PROVIDERS: PCP Internal Medicine; Referring Provider Internal Medicine Endocrinology, Diabetes & Metabolism; Visit Provider Internal Medicine Endocrinology, Diabetes & Metabolism
DX: E10.59 Type 1 diabetes mellitus with other circulatory complications (principal); I10 Essential (primary) hypertension; E78.00 Pure hypercholesterolemia, unspecified; E55.9 Vitamin D deficiency, unspecified
CPT/HCPCS: 36415; 80053; 80061; 81001; 82043; 82306; 82570; 83036; 84100; 84439; 84443; 85025

== ENCOUNTER → 2025-05-18 | Outpatient (CLI) | payer MEDICARE, SELFPAY ==
[2025-05-18 10:03] LABS: Cardiac Risk Estimate 1.7 RATIO (3.7-5.6); Cholesterol 117 mg/dL (132-200); HDL Cholesterol 70 mg/dL (40-60); LDL Cholesterol,Calculated 38 mg/dL (0-130); Triglycerides 44 mg/dL (30-150)
== END | disposition home or self-care (01) ==
LOC: COPL 09:03
PROVIDERS: PCP Internal Medicine; Referring Provider Internal Medicine; Visit Provider Internal Medicine
DX: E11.9 Type 2 diabetes mellitus without complications (principal); I10 Essential (primary) hypertension; E78.5 Hyperlipidemia, unspecified
CPT/HCPCS: 36415; 80061